=== PATIENT | female | born 1950 | race Caucasian/White ===

== ENCOUNTER 2022-07-24 13:28 | Emergency (ER) | payer MEDICARE, OTHER ==
[2022-07-24 16:01] VITALS: BP 136/76; PULSE 68
== END 2022-07-24 15:45 | disposition home or self-care (01) ==
LOC: JD.ED 13:28
DX: G89.4 Chronic pain syndrome (principal); M47.812 Spondylosis without myelopathy or radiculopathy, cervical region; F41.9 Anxiety disorder, unspecified; Z88.2 Allergy status to sulfonamides; Z90.49 Acquired absence of other specified parts of digestive tract; Z90.710 Acquired absence of both cervix and uterus
CPT/HCPCS: 36415; 71046; 71046-26; 72040; 72040-26; 80053; 83690; 83735; 84484; 85025; 93005; 99285

== ENCOUNTER 2025-01-08 07:00 | Day surgery (SDC) | payer MEDICARE, OTHER ==
[~2025-01-08 07:00] MED LIST: Sodium Chloride 0.9% 10 ML Syringe FLUSH PRN; Sodium Chloride 0.9% 10 ML Syringe FLUSH SCH
[2025-01-08] MEDS: Lactated Ringers 1,000 ML IV SCH (07:25)
[2025-01-08] MEDS ORDERED: fentaNYL 100 MCG/2 ML SDV IVPUSH PRN (07:26)
[2025-01-08] MEDS ORDERED: Ondansetron 4 MG/2 ML SDV IVPUSH PRN (07:26)
[2025-01-08] MEDS ORDERED: propofoL 500 MG/50 ML 50 ML ONE (07:28)
[2025-01-08] MEDS ORDERED: fentaNYL 100 MCG/2 ML SDV ONE (07:30)
[2025-01-08] MEDS ORDERED: Dexamethasone 4 MG/ML 5 ML MDV ONE (07:30)
[2025-01-08] MEDS ORDERED: Ondansetron 4 MG/2 ML SDV ONE (07:30)
[2025-01-08 09:06] VITALS: BP 130/61; PULSE 56
== END 2025-01-08 09:21 | disposition home or self-care (01) ==
LOC: JD.SDS 07:00
PROVIDERS: ATTEND Orthopaedic Surgery
DX: G56.01 Carpal tunnel syndrome, right upper limb (principal); M17.12 Unilateral primary osteoarthritis, left knee; I25.10 Atherosclerotic heart disease of native coronary artery without angina pectoris; M48.062 Spinal stenosis, lumbar region with neurogenic claudication; E78.00 Pure hypercholesterolemia, unspecified; F17.210 Nicotine dependence, cigarettes, uncomplicated; Z88.8 Allergy status to other drugs, medicaments and biological substances; Z88.2 Allergy status to sulfonamides; Z79.82 Long term (current) use of aspirin; Z79.899 Other long term (current) drug therapy
CPT/HCPCS: 20610; 64721; J1100; J2405; J2704; J3010; J7120